=== PATIENT | male | born 1980 | race Caucasian/White ===

== ENCOUNTER 2016-12-07 18:37 | Emergency (ER) | payer OTHER | END 2016-12-07 18:51 | disposition home or self-care (01) | LOC: ER 18:37 | DX: J45.909 Unspecified asthma, uncomplicated (principal); F32.9 Major depressive disorder, single episode, unspecified; F17.220 Nicotine dependence, chewing tobacco, uncomplicated; Z79.899 Other long term (current) drug therapy ==

== ENCOUNTER 2016-12-15 08:49 | Emergency (ER) | payer OTHER | END 2016-12-15 09:10 | disposition home or self-care (01) | LOC: ER 08:49 | DX: Z76.0 Encounter for issue of repeat prescription (principal); J45.909 Unspecified asthma, uncomplicated; F20.9 Schizophrenia, unspecified; F17.210 Nicotine dependence, cigarettes, uncomplicated ==

== ENCOUNTER 2016-12-26 06:00 | Emergency (ER) | payer OTHER | END 2016-12-26 06:49 | disposition home or self-care (01) | LOC: ER 06:00 | DX: J45.909 Unspecified asthma, uncomplicated (principal); F17.220 Nicotine dependence, chewing tobacco, uncomplicated; Z79.51 Long term (current) use of inhaled steroids ==